=== PATIENT | male | born 1985 | race American Indian/Alaskan Native ===

== ENCOUNTER 2020-05-03 21:49 | Emergency (ER) | payer MEDICAID, OTHER ==
[2020-05-03] MEDS ORDERED: traMADol 50 MG Tab PO ONE (22:57)
--- NOTE | 2020-05-03 23:02 | EDM.PDOC ---
ED HPI GENERAL MEDICAL PROBLEM - General Chief Complaint: Gastrointestinal Problem Stated Complaint: ABD PAIN Time Seen by Provider: 05/03/20 22:35 Source of Information: Reports: Patient History Limitations: Reports: No Limitations - History of Present Illness INITIAL COMMENTS - FREE TEXT/NARRATIVE: 34-year-old male with cirrhosis, abdominal ascites and hepatorenal syndrome pr esents because he has abdominal pain and wants a paracentesis. He claims that [facility] is doing nothing for him. However prior to seeing the patient, [facility] chart was opened and he was there earlier today with labs and a treatment plan and scheduled for a paracentesis tomorrow morning. He was scheduled for paracentesis already yesterday but he left AMA, so the admitting physician did not want to readmit him today. He was given 2 fentanyl patches 3 days ago, at first he said the second patch was taken off at the hospital but later said he has 1 patch at home but they do not work. He is afebrile. Onset: Unknown/Unsure Associated Symptoms: Reports: Loss of Appetite, Malaise, Weakness. Denies: Chest Pain, Cough Abdomen Pain Score (Numeric/FACES): 9 - Related Data Allergies Allergy/AdvReac Type Severity Reaction Status Date / Time ceftriaxone sodium Allergy Hives Verified 05/03/20 22:41 [From Rocephin] ibuprofen Allergy Hives Verified 05/03/20 22:41 meloxicam Allergy Indigestion Verified 05/03/20 22:41 Home Meds: Home Meds Ciprofloxacin HCl [Cipro] 500 mg PO DAILY 05/03/20 [History] Furosemide 80 mg PO DAILY 05/03/20 [History] Lactulose [Chronulac] 15 ml PO TID 05/03/20 [History] Spironolactone [Aldactone] 50 mg PO DAILY 05/03/20 [History] hydrOXYzine HCL [Hydroxyzine HCl] 50 mg PO DAILY 05/03/20 [History] traMADol HCl [Tramadol HCl] 50 mg PO DAILY 05/03/20 [History] Past Medical History HEENT History: Reports: Impaired Vision Gastrointestinal History: Reports: Cirrhosis, Fatty Liver Genitourinary History: Reports: Chronic Renal Insuffiency Psychiatric History: Reports: Addiction, Anxiety, Depression Endocrine/Metabolic History: Reports: Obesity/BMI 30+ - Past Surgical History GI Surgical History: Reports: Abdominal paracentesis Social & Family History - Tobacco Use Smoking Status *Q: Former Smoker Used Tobacco, but Quit: Yes Month/Year Tobacco Last Used: 03/2020 - Caffeine Use Caffeine Use: Reports: Soda - Alcohol Use Date of Last Drink: 03/22/20 - Recreational Drug Use Recreational Drug Use: No ED ROS GENERAL - Review of Systems Review Of Systems: See Below Constitutional: Reports: Malaise, Decreased Appetite Respiratory: Denies: Shortness of Breath GI/Abdominal: Reports: Abdominal Pain, Nausea. Denies: Vomiting Skin: Reports: Bruising Neurological: Reports: Weakness. Denies: Headache ED EXAM, GI/ABD - Physical Exam Exam: See Below Exam Limited By: No Limitations General Appearance: Alert, No Apparent Distress (Patient does look uncomfortable but not distressed) Eyes: Bilateral: Pale Conjunctiva Head: Atraumatic Respiratory/Chest: No Respiratory Distress, Lungs Clear Cardiovascular: Regular Rate, Rhythm GI/Abdominal Exam: Distended, Other (Abdomen is diffusely distended, tender to palpation with scattered ecchymotic bruising) Neurological: Alert, Oriented Course - Vital Signs Last Recorded V/S: Last Vital Signs Temp 97.7 F 05/03/20 22:50 Pulse 85 05/03/20 22:50 Resp 20 05/03/20 22:50 BP 104/36 L 05/03/20 22:50 Pulse Ox 99 05/03/20 22:50 - Orders/Labs/Meds Meds: Medications Discontinued Medications Generic Name Dose Route Start Last Admin Trade Name Musaq PRN Reason Stop Dose Admin Tramadol HCl 50 mg 05/03/20 22:57 05/03/20 23:06 Ultram PO 05/03/20 22:58 50 mg ONETIME ONE Administration - Re-Assessments/Exams Free Text/Narrative Re-Assessment/Exam: 05/03/20 23:00 Explained to the patient that he should continue his course of treatment at [facility] in [place] and return for his paracentesis tomorrow as scheduled. I reviewed the labs from earlier today at [facility], nothing needs to be repeated at this time. His vitals are stable, he is afebrile, blood pressure is normal and he can place his second fentanyl patch on when he gets home for pain control. I also gave him 1 50 mg tramadol orally. Departure - Departure Time of Disposition: 23:09 Disposition: Home, Self-Care 01 Clinical Impression: Ascites due to alcoholic cirrhosis - Discharge Information Instructions: Alcoholic Liver Disease, [id number] Referrals: PCP,None [Primary Care Provider] - Forms: ED Department Discharge Care Plan Goals: It is very important that you return tomorrow for your paracentesis as scheduled and follow the recommendations and treatment of the doctors trying to help you. Sepsis Event Note (ED) - Evaluation Sepsis Screening Result: No Definite Risk - Focused Exam Vital Signs: Vital Signs Temp Pulse Resp BP Pulse Ox 05/03/20 22:50 97.7 F 85 20 104/36 L 99 05/03/20 22:26 97.7 F 85 20 104/36 L 99
== END 2020-05-03 23:10 | disposition home or self-care (01) ==
LOC: JP.ED 21:49
DX: K70.31 Alcoholic cirrhosis of liver with ascites (principal); N18.9 Chronic kidney disease, unspecified; E66.9 Obesity, unspecified; Z88.1 Allergy status to other antibiotic agents; Z88.6 Allergy status to analgesic agent; Z88.8 Allergy status to other drugs, medicaments and biological substances; Z79.899 Other long term (current) drug therapy; Z87.891 Personal history of nicotine dependence; Z68.41 Body mass index [BMI] 40.0-44.9, adult
CPT/HCPCS: 99283; A9270